=== PATIENT | female | born 1960 | race African-American/Black ===

== ENCOUNTER 2019-06-02 09:43 | Emergency (ER) | payer MEDICAID ==
[~2019-06-02] VITALS: Ht 167.6 cm; Wt 73.0 kg
[2019-06-02] MEDS ORDERED: KETOROLAC 30MG/ML VIAL IV STA (10:23)
[2019-06-02] MEDS ORDERED: SODIUM CHLORIDE 0.9% 1,000 ML IV ONE (10:23)
[2019-06-02 10:58] LABS: EOSINOPHILS % 2.6 % (0.0-5.0); HEMOGLOBIN. 13.3 g/dL (12.0-16.0); LYMPHOCYTES % 40.8 % (20.0-50.0); MEAN CORPUSCULAR HEMOGLOBIN 28.5 pg (28.0-32.0); MEAN CORPUSCULAR VOLUME 87.7 fL (81.0-99.0); MEAN PLATELET VOLUME 8.9 fl (7.4-10.4); NEUTROPHILS % 46.6 % (40.0-76.0); PLATELET 239 x1000/uL (130-400); RED BLOOD CELL COUNT 4.67 mill/uL (4.2-5.4); RED CELL DISTRIBUTION WIDTH 14.4 % (11.6-14.6)
[2019-06-02 11:03] LABS: CHLORIDE 110 mEq/L (98-107)
[2019-06-02 11:09] LABS: ETHANOL BLOOD < 10 mg/dL
[2019-06-02 11:45] LABS: *AMPHETAMINES SCREEN URINE NEGATIVE (NEGATIVE)
[2019-06-02 11:46] LABS: *BARBITURATES SCREEN URINE NEGATIVE (NEGATIVE); *BENZODIAZEPINES SCREEN URINE NEGATIVE (NEGATIVE); *COCAINE SCREEN URINE NEGATIVE (NEGATIVE); CANNABINOID URINE SCREEN PRESUMTIVE POSITIVE (NEGATIVE); METHADONE URINE SCREEN NEGATIVE (NEGATIVE); OPIATES URINE SCREEN NEGATIVE (NEGATIVE); PHENCYCLIDINE URINE SCREEN NEGATIVE (NEGATIVE)
[2019-06-02 13:35] VITALS: BP 130/70
== END 2019-06-02 13:49 | disposition home or self-care (01) ==
LOC: EDBD 09:43 → ER 09:43
DX: R07.89 Other chest pain (principal)
CPT/HCPCS: 36415; 71045; 80053; 80305; 80320; 83880; 84484; 85025; 93005; 96374; 99284; J1885; J7030; G0480

== ENCOUNTER 2020-01-04 15:41 | Emergency (ER) | payer MEDICAID ==
[~2020-01-04] VITALS: Ht 167.6 cm; Wt 70.0 kg
[2020-01-04] MEDS ORDERED: IBUPROFEN 600MG TABLET PO ONE (17:45)
[2020-01-04 18:23] LABS: BASOPHILS % 0.7 % (0.0-2.0); EOSINOPHILS % 1.1 % (0.0-5.0); HEMATOCRIT. 39.1 % (36.0-48.0); HEMOGLOBIN. 12.9 g/dL (12.0-16.0); LYMPHOCYTES % 27.4 % (20.0-50.0); MEAN CORPUSCULAR HEMOGLOBIN 28.8 pg (28.0-32.0); MEAN CORPUSCULAR VOLUME 87.1 fL (81.0-99.0); MONOCYTES % 7.6 % (2.0-8.0); NEUTROPHILS % 63.2 % (40.0-76.0); PLATELET 240 x1000/uL (130-400); RED BLOOD CELL COUNT 4.48 mill/uL (4.2-5.4); RED CELL DISTRIBUTION WIDTH 13.6 % (11.6-14.6)
[2020-01-04 18:27] LABS: CHLORIDE 105 mEq/L (98-107)
[2020-01-04] MEDS ORDERED: BACITRACIN ZINC OINT UDPKT TOP ONE (19:00)
[2020-01-04 19:05] VITALS: BP 117/77
== END 2020-01-04 19:05 | disposition home or self-care (01) ==
LOC: ER 15:41
DX: L03.116 Cellulitis of left lower limb (principal)
CPT/HCPCS: 36415; 80053; 85025; 99283

== ENCOUNTER 2021-03-11 09:44 | Emergency (ER) | payer MEDICAID ==
[~2021-03-11] VITALS: Ht 167.6 cm; Wt 75.0 kg
[2021-03-11] MEDS ORDERED: ACETAMINOPHEN 325MG TABLET PO STA (10:28)
[2021-03-11] MEDS ORDERED: BACITRACIN ZINC OINT UDPKT TOP ONE (10:30)
[2021-03-11] MEDS ORDERED: NAPR-681 PO (12:04)
[2021-03-11] MEDS ORDERED: BO1 TP (12:04)
[2021-03-11 12:15] VITALS: BP 146/74
== END 2021-03-11 12:17 | disposition home or self-care (01) ==
LOC: ER 09:50
DX: S01.01XA Laceration without foreign body of scalp, initial encounter (principal); S40.021A Contusion of right upper arm, initial encounter; Y08.89XA Assault by other specified means, initial encounter; Y93.89 Activity, other specified; Y92.89 Other specified places as the place of occurrence of the external cause; Y99.8 Other external cause status
CPT/HCPCS: 73060; 99284

== ENCOUNTER 2021-03-14 09:08 | Emergency (ER) | payer MEDICAID ==
[~2021-03-14] VITALS: Ht 170.2 cm; Wt 87.0 kg
[~2021-03-14 09:08] MED LIST: BO1 TP; NAPR-681 PO
[2021-03-14 10:20] VITALS: BP 169/88
== END 2021-03-14 10:20 | disposition home or self-care (01) ==
LOC: ER 09:08
DX: Z48.00 Encounter for change or removal of nonsurgical wound dressing (principal); Z87.828 Personal history of other (healed) physical injury and trauma
CPT/HCPCS: 99281